=== PATIENT | female | born 1945 | race Two or more races ===

== ENCOUNTER 2022-06-05 07:07 | Day surgery (SDC) | payer OTHER ==
[~2022-06-05] VITALS: Ht 157.5 cm; Wt 63.5 kg
[~2022-06-05 07:07] MED LIST: NEURONTIN; PRAVASTATIN SOD40 MG
== END 2022-06-05 16:15 | disposition home or self-care (01) ==
LOC: CIR.AMB 07:07
PROVIDERS: ATTEND Orthopaedic Surgery
DX: M75.121 Complete rotator cuff tear or rupture of right shoulder, not specified as traumatic (principal); M24.111 Other articular cartilage disorders, right shoulder; Z88.6 Allergy status to analgesic agent; Z20.822 Contact with and (suspected) exposure to COVID-19; Z88.0 Allergy status to penicillin; E78.5 Hyperlipidemia, unspecified